=== PATIENT | female | born 1970 | race Caucasian/White ===

== ENCOUNTER → 2016-12-23 | Day surgery (SDC) | payer SELFPAY ==
[~2016-12-23] VITALS: Ht 157.5 cm; Wt 70.3 kg
[~2016-12-23] MED LIST: SPRINTEC 28 DA1 EACH PO
--- NOTE | 2017-01-04 12:55 | Operative Report ---
See Addendum Operative/Inv Procedure Report Surgery Date: 12/24/16 Name of Procedure: Fat grafting to buttock liposuction trunk bilateral breast reduction Pre-Operative Diagnosis: Heavy breasts lipodystrophy trunk and buttock Post-Operative Diagnosis: Same Estimated Blood Loss: scant (200) Surgeon/Scrap Burner: THEODORA MERCADO MD Anesthesia: general endotracheal tube Monitors: Patient was counseled regards the procedure the alternatives the risks and expected outcomes as her left as relates to her request for surgical intervention to treat heavy drooping of breasts as well as some fullness in the trunk and thighs lack of shape of the buttock. Patient has requested a bilateral breast reduction using same implants was liposuction of the abdominal wall back with fact grafting to the buttock. Patient was marked in the standing position shown visibly the areas of would be treated those that would not on the front of the body. She was brought to the operative room placed supine on the table. Venodyne boots are placed and then general anesthesia was established intravenous antibiotics were given. The abdomen was prepped and draped in usual sterile fashion. Liposuction was performed in the tumescent technique. She was then put into the prone position and appropriately padded and liposuction was carried out of the upper and lower back and thighs. Processed and injected into the buttock and the superficial planes. Incisions were closed with glue and sutures. The patient was then put into the supine position and a bilateral circumareolar vertical reduction and lift was performed. 3 layer closure. The implants were not exposed through the capsule. Consent Operative/Procedure Note Note: Patient was counseled regards the procedure the alternatives risks and expected outcomes as relates to her request for surgical intervention to treat drooping heavy breasts as well as lipodystrophy of the trunk and back. This includes the medial thighs. She was brought to the operating placed supine on the table. Venodyne boots are placed and then anesthesia was established intravenous antibiotics were given and the skin was prepped and draped in usual sterile fashion. Tumescent technique was used liposuctioning the medial knee medial upper thighs abdominal wall. The incisions were closed with sutures and group. She was then put into the prone position where liposuction was carried out of the upper and lower back with the tumescent technique. The fat was processed and injected in the superficial layers of the buttock. Incisions were closed the same way. She was then put into the supine position were circum-vertical reduction was done with a 3 layer closure. Exposed through the capsule. End dictation
== END ==
LOC: STS 02:53
DX: Z41.1 Encounter for cosmetic surgery (principal); N62 Hypertrophy of breast; E65 Localized adiposity
CPT/HCPCS: 81025; 88305; J0171; J0690; J2250; J2405